=== PATIENT | female | born 1995 | race Caucasian/White ===

== ENCOUNTER 2019-03-19 08:45 | Emergency (ER) | payer SELFPAY ==
[~2019-03-19] VITALS: Ht 165.1 cm; Wt 82.0 kg
[2019-03-19] MEDS ORDERED: IBUPROFEN 600MG TABLET PO ONE (11:00)
[2019-03-19 11:45] VITALS: BP 122/71
== END 2019-03-19 11:45 | disposition home or self-care (01) ==
LOC: ER 08:45
DX: S13.4XXA Sprain of ligaments of cervical spine, initial encounter (principal); R07.81 Pleurodynia; V89.2XXA Person injured in unspecified motor-vehicle accident, traffic, initial encounter; Y93.9 Activity, unspecified; Y92.410 Unspecified street and highway as the place of occurrence of the external cause
CPT/HCPCS: 81025; 99283